=== PATIENT | female | born 1995 | race Caucasian/White ===

== ENCOUNTER 2017-11-10 12:59 | Day surgery (SDC) | payer OTHER ==
[2017-11-10] MEDS ORDERED: MIDAZOLAM 1 MG/ML 2 ML INJ ×3 (17:30)
[2017-11-10] MEDS ORDERED: FENTAnyl 50 MCG/ML VIAL (17:30)
== END 2017-11-10 17:37 | disposition home or self-care (01) ==
LOC: GIL 12:59
DX: K29.50 Unspecified chronic gastritis without bleeding (principal); K20.8 Other esophagitis
CPT/HCPCS: 43239; 84703; 88305; 88312